=== PATIENT | female | born 1960 | race Caucasian/White ===

== ENCOUNTER 2017-06-23 13:04 | Emergency (ER) | payer OTHER ==
[2017-06-23 13:10] VITALS: BP 127/70; PULSE 72; TEMP 98; BMI 26.5
--- NOTE | 2017-06-23 14:03 | PDOC ---
History of Present Illness - General Chief Complaint: Cold Symptoms Stated Complaint: COUGH Time Seen by Provider: 06/23/17 13:40 History Source: Patient Exam Limitations: No Limitations - History of Present Illness Initial Comments: 06/23/17 15:42 Chief complaint: Cough Patient is a 57-year-old healthy female with a few days of cough, runny nose. Patient has not been taking any medication. No shortness of breath. GENERAL/CONSTITUTIONAL: No fever, weakness. dizziness HEAD, EYES, EARS, NOSE AND THROAT: No change in vision. No ear pain or discharge. No sore throat. CARDIOVASCULAR: No chest pain RESPIRATORY: No shortness of breath +cough GASTROINTESTINAL: No pain, nausea, vomiting, diarrhea or constipation GENITOURINARY: No dysuria MUSCULOSKELETAL: No neck or back pain SKIN: No rash NEUROLOGIC: No headache, vertigo, loss of consciousness, or loss of sensation. GENERAL: The patient is awake, alert, and fully oriented, in no acute distress. HEAD: Normal with no signs of trauma. EYES: Pupils equal, round and reactive to light, sclera anicteric, conjunctiva clear. ENT: pharynx: no erythema, no exudate, uvula midline NECK: supple CHEST: Scant expiratory wheeze that cleared up after a few breaths with coughing , nontender, rr ABD: soft, nontender EXTREMITIES: Normal range of motion, no edema. NEUROLOGICAL: Normal speech, normal gait. SKIN: Warm, Dry Past History - Past Medical History Allergies/Adverse Reactions: Allergies Allergy/AdvReac Type Severity Reaction Status Date / Time clindamycin Allergy Unknown Verified 06/23/17 13:09 erythromycin base Allergy Unknown Swelling Verified 06/23/17 13:09 [Erythromycin Base] Penicillins Allergy Unknown Swelling Verified 06/23/17 13:09 Home Medications: Ambulatory Orders Albuterol Sulfate Inhaler - [Ventolin HFA Inhaler -] 2 inh PO Q6H PRN #1 inh 09/08 Prednisone [Deltasone] 40 mg PO DAILY #8 tablet 06/23/17 COPD: No Other medical history: NONE - Immunization History Immunization Up to Date: No - Suicide/Smoking/Psychosocial Hx Smoking Status: No Smoking History: Former smoker Have you smoked in the past 12 months: No Number of Cigarettes Smoked Daily: 2 If you are a former smoker, when did you quit?: 2013 Information on smoking cessation initiated: No Hx Alcohol Use: No Drug/Substance Use Hx: No Substance Use Type: None *Physical Exam - Vital Signs Last Vital Signs Temp Pulse Resp BP Pulse Ox 98.0 F 72 20 127/70 99 06/23/17 13:06 06/23/17 13:06 06/23/17 13:06 06/23/17 13:06 06/23/17 13:06 Medical Decision Making - Medical Decision Making 06/23/17 15:44 Patient with upper respiratory infection, viral, with scant intermittent wheeze. Will prescribe inhaler and prednisone, patient given suggestions to take Sudafed or an [id number] decongestant, cough medicine along with these medications and follow-up with her doctor this week. *DC/Admit/Observation/Transfer Diagnosis at time of Disposition: Upper respiratory infection Qualifiers: URI type: unspecified URI Qualified Code(s): J06.9 - Acute upper respiratory infection, unspecified - Discharge Dispostion Disposition: HOME Condition at time of disposition: Stable Admit: No - Prescriptions Prescriptions: Albuterol Sulfate Inhaler - [Ventolin HFA Inhaler -] 2 inh PO Q6H PRN #1 inh PRN Reason: Wheezing Prednisone [Deltasone] 40 mg PO DAILY #8 tablet - Referrals - Patient Instructions Printed Discharge Instructions: DI for Viral Upper Respiratory Infection -- Adult Additional Instructions: Drink 2-3 L of water daily Take Tylenol 650 mg every 4 hours or Motrin 600 mg every 6 hours for fever and pain use albuterol inhaler 2 puffs every 6 hours for any wheezing or consistent coughing. if you find you are wheezing over the weekend, start the prednisone 40 mg once daily you can take pseudophed or any other decongestant you like for runny nose and congestion Return to the nearest ER if short of breath, unable to swallow or feeling sicker Followup with your doctor in one to 2 days - Post Discharge Activity
== END 2017-06-23 14:05 | disposition home or self-care (01) ==
LOC: JERFT 13:04
DX: J06.9 Acute upper respiratory infection, unspecified (principal); Z87.891 Personal history of nicotine dependence
CPT/HCPCS: 99281-25

== ENCOUNTER 2018-12-02 13:59 | Emergency (ER) | payer OTHER ==
[2018-12-02 14:13] VITALS: BP 102/56; PULSE 63; TEMP 98; BMI 30.2
--- NOTE | 2018-12-02 14:28 | PDOC ---
History of Present Illness - General Chief Complaint: Cold Symptoms Stated Complaint: COUGH Time Seen by Provider: 12/02/18 14:20 - History of Present Illness Initial Comments: 12/02/18 14:25 58-year-old female with no comorbidities presents for evaluation of cough 2 month no systemic symptoms. Past History - Past Medical History Allergies/Adverse Reactions: Allergies Allergy/AdvReac Type Severity Reaction Status Date / Time clindamycin Allergy Unknown Verified 12/02/18 14:03 erythromycin base Allergy Unknown Swelling Verified 12/02/18 14:03 [Erythromycin Base] Penicillins Allergy Unknown Swelling Verified 12/02/18 14:03 Home Medications: Ambulatory Orders Budesonide [Rhinocort Allergy] 1 spray NS ONCE #1 spray.pump 12/02/18 Cetirizine HCl [Zyrtec Rapidly Dissolving Tab -] 10 mg PO DAILY #30 tab COPD: No - Immunization History Immunization Up to Date: No - Suicide/Smoking/Psychosocial Hx Smoking Status: No Smoking History: Never smoked Have you smoked in the past 12 months: No Number of Cigarettes Smoked Daily: 2 If you are a former smoker, when did you quit?: 2013 Information on smoking cessation initiated: No Hx Alcohol Use: No Drug/Substance Use Hx: No Substance Use Type: None Review of Systems - Review of Systems Constitutional: No: Fever Respiratory: Yes: Cough *Physical Exam - Vital Signs Last Vital Signs Temp Pulse Resp BP Pulse Ox 98.0 F 63 16 102/56 L 97 12/02/18 14:00 12/02/18 14:00 12/02/18 14:00 12/02/18 14:00 12/02/18 14:00 - Physical Exam Comments: 12/02/18 14:25 HEAD: NC/AT EYES: Conjuntiva clear Ears: Canals and TM's normal NOSE: No d/c THROAT: Moist mucous membrances, oral pharanx clear, uvula midline NECK: Supple without adenopathy CARDIAC: S1 S2 LUNGS: CTA Full and Equal breath sounds ABDOMEN: Soft NT ND MS: Full ROM in all joints without edema NEUROLOGIC: No gross sensory or motor deficits, NVID SKIN: Normal color and temperature no lesions or rashes Medical Decision Making - Medical Decision Making 12/02/18 14:25 Benign examination we'll start patient on a hand antihistamine and nasal spray and have her follow-up with her primary care physician. *DC/Admit/Observation/Transfer Diagnosis at time of Disposition: Seasonal allergic reaction - Discharge Dispostion Disposition: HOME Condition at time of disposition: Stable Decision to Admit order: No - Prescriptions Prescriptions: Budesonide [Rhinocort Allergy] 1 spray NS ONCE #1 spray.pump Cetirizine HCl [Zyrtec Rapidly Dissolving Tab -] 10 mg PO DAILY #30 tab - Referrals Referrals: Andre Henderson MD [Staff Physician] - - Patient Instructions Printed Discharge Instructions: Allergic Rhinitis Additional Instructions: Please take the antihistamine nasal spray as directed return to the emergency room for worsening symptoms and follow-up with your primary care physician in one to 2 days for further evaluation and treatment options. - Post Discharge Activity - Transfer to Acute Care Facility Transfer comment: 12/02/18 14:26 12/02/18 14:28
== END 2018-12-02 14:39 | disposition home or self-care (01) ==
LOC: JERFT 13:59
DX: J30.2 Other seasonal allergic rhinitis (principal); Z87.891 Personal history of nicotine dependence
CPT/HCPCS: 99281-25

== ENCOUNTER 2019-08-15 16:47 | Emergency (ER) | payer OTHER ==
--- NOTE | 2019-08-15 16:59 | PDOC ---
Rapid Medical Evaluation Time Seen by Provider: 08/15/19 16:57 Medical Evaluation: Allergies Allergy/AdvReac Type Severity Reaction Status Date / Time clindamycin Allergy Unknown Verified 12/02/18 14:03 erythromycin base Allergy Unknown Swelling Verified 12/02/18 14:03 [Erythromycin Base] Penicillins Allergy Unknown Swelling Verified 12/02/18 14:03 08/15/19 16:57 Pt c/o: swelling to gum x 2 days, subjective fever, mult caries Pt on brief exam: noted gingivitis, + excessive plaque, recessed gums, poor dental hygiene, mild erythema to llq Pt ordered for: none pt to proceed to the ED Discharge Disposition - Diagnosis Gingivitis, Pain, dental - Discharge Dispostion Disposition: HOME Condition at time of disposition: Stable - Prescriptions Prescriptions: Doxycycline Hyclate 100 mg PO BID #14 tablet - Referrals - Patient Instructions Printed Discharge Instructions: DI for Dental Pain Additional Instructions: You were evaluated for your dental pain today. You most likely have an infection in the gum. I did not feel any abscesses. Please take the doxycycline as directed for the infection. Please take this medication with food, activita a yogurt is recommended. Please follow-up with your dentist as soon as possible. You were also given the information for the urgent care in [place]. If you cannot find a dentist within the next week please follow-up with them. Return to the ER for difficulty breathing, difficulty swallowing, increased pain despite treatment, or if you have any changes in your symptoms. [facility] Address: [address] [place] [address] - Post Discharge Activity
[2019-08-15 17:03] VITALS: BP 127/80; PULSE 65; TEMP 97.9; BMI 29.4
--- NOTE | 2019-08-15 18:56 | PDOC ---
History of Present Illness - General Chief Complaint: Cold Symptoms Stated Complaint: FEVER Time Seen by Provider: 08/15/19 16:57 History Source: Patient Exam Limitations: No Limitations Past History - Travel Traveled outside of the country in the last 30 days: No Close contact w/someone who was outside of country & ill: No - Past Medical History Allergies/Adverse Reactions: Allergies Allergy/AdvReac Type Severity Reaction Status Date / Time clindamycin Allergy Unknown Verified 08/15/19 16:58 erythromycin base Allergy Unknown Swelling Verified 08/15/19 16:58 [Erythromycin Base] Penicillins Allergy Unknown Swelling Verified 08/15/19 16:58 Home Medications: Ambulatory Orders Budesonide [Rhinocort Allergy] 1 spray NS ONCE #1 spray.pump 12/02/18 Cetirizine HCl [Zyrtec Rapidly Dissolving Tab -] 10 mg PO DAILY #30 tab Doxycycline Hyclate 100 mg PO BID #14 tablet 08/15/19 COPD: No - Immunization History Immunization Up to Date: No - Psycho Social/Smoking Cessation Hx Smoking Status: No Smoking History: Former smoker Have you smoked in the past 12 months: No Number of Cigarettes Smoked Daily: 2 If you are a former smoker, when did you quit?: 2013 Information on smoking cessation initiated: Yes Hx Alcohol Use: No Drug/Substance Use Hx: No Substance Use Type: None Review of Systems - Review of Systems Able to Perform ROS?: Yes Comments:: 08/15/19 19:00 CONSTITUTIONAL: Absent: fever, chills, diaphoresis, generalized weakness, malaise, loss of appetite HEENT: Present: dental pain Absent: rhinorrhea, nasal congestion, throat pain, throat swelling, difficulty swallowing, mouth swelling, ear pain, eye pain, visual changes SKIN: Absent: rash, itching, pallor NEUROLOGIC: Absent: headache, focal weakness or paresthesias, dizziness, unsteady gait, seizure, mental status changes, bladder or bowel incontinence PSYCHIATRIC: Absent: anxiety, depression, suicidal or homicidal ideation, hallucinations. Is the patient limited Trinidadian proficient: No *Physical Exam - Vital Signs Last Vital Signs Temp Pulse Resp BP Pulse Ox 97.9 F 65 12 127/80 99 08/15/19 16:58 08/15/19 16:58 08/15/19 16:58 08/15/19 16:58 08/15/19 16:58 - Physical Exam 08/17/19 19:54 GENERAL: The patient is awake, alert, and fully oriented, in no acute distress. HEAD: Normal with no signs of trauma. EYES: Pupils equal, round and reactive to light, extraocular movements intact, sclera anicteric, conjunctiva clear. HEENT: Swelling and gingivitis present to the left lower gum near teeth 24 through 22. No obvious abscess or drainage. No nasal congestion or rhinorrhea. No sinus Tenderness. Mucous membranes are moist. No tonsillar erythema, exudate or edema. Uvula is midline. No TM bulging, dullness or erythema. NECK: Neck is supple. No adenopathy. No meningismus. No stridor. EXTREMITIES: Normal range of motion, no edema. NEUROLOGICAL: Normal speech, normal gait. PSYCH: Normal mood, normal affect. SKIN: Warm, Dry, normal turgor, no rashes or lesions noted. Medical Decision Making - Medical Decision Making 08/17/19 19:55 The patient is a 59-year-old female who presents to the ER today with left lower gum pain. She states that her breath has been starting to smell and her lower teeth hurt. She knows she needs a root canal but she has not been able to see her dentist. She states that she is starting to feel intermittently febrile and is concerned it could be from her tooth. She states that it hurts to chew. Denies difficulty swallowing, sore throat, vomiting. A/P: Dental pain On exam teeth 24 through 22 with gingivitis and swollen gums. No obvious abscess or fluctuance near those teeth. Overall poor dentition. We will treat patient with doxycycline for her dental infection. Referred patient to another dentist so she could have a further more thorough evaluation. Discharge home I discussed the physical exam findings, ancillary test results and final diagnoses with the patient. I answered all of the patient's questions. The patient was satisfied with the care received and felt comfortable with the discharge plan and treatment plan. The Patient agrees to follow up with the primary care physician/specialist within 24-72 hours. Return precautions were given. Discharge - Discharge Information Problems reviewed: Yes Clinical Impression/Diagnosis: Gingivitis, Pain, dental Condition: Stable Disposition: HOME - Admission No - Additional Discharge Information Prescriptions: Doxycycline Hyclate 100 mg PO BID #14 tablet - Follow up/Referral - Patient Discharge Instructions Patient Printed Discharge Instructions: DI for Dental Pain Additional Instructions: You were evaluated for your dental pain today. You most likely have an infection in the gum. I did not feel any abscesses. Please take the doxycycline as directed for the infection. Please take this medication with food, activita a yogurt is recommended. Please follow-up with your dentist as soon as possible. You were also given the information for the urgent care in [place]. If you cannot find a dentist within the next week please follow-up with them. Return to the ER for difficulty breathing, difficulty swallowing, increased pain despite treatment, or if you have any changes in your symptoms. [facility] Address: [address] [place] [id number] - Post Discharge Activity
== END 2019-08-15 19:28 | disposition home or self-care (01) ==
LOC: JERFT 16:47
DX: K02.9 Dental caries, unspecified (principal); K05.10 Chronic gingivitis, plaque induced; Z88.1 Allergy status to other antibiotic agents
CPT/HCPCS: 99281-25

== ENCOUNTER 2019-09-19 14:47 | Emergency (ER) | payer OTHER ==
[2019-09-19 14:53] VITALS: BP 138/73; PULSE 67; TEMP 98; BMI 29.2
--- NOTE | 2019-09-19 15:12 | PDOC ---
History of Present Illness - General Chief Complaint: Toothache Stated Complaint: SICK Time Seen by Provider: 09/19/19 14:54 History Source: Patient Exam Limitations: No Limitations - History of Present Illness Initial Comments: 09/19/19 15:13 HISTORY OF PRESENT ILLNESS: 59-year-old woman who denies medical history presents emergency department for evaluation of right-sided dental pain for the past 3 days. Patient reports she was seen and treated here approximately 1 month ago for which she never followed up with a dentist as she had multiple social issues to handle prior to dentist. Patient is requesting an additional course of doxycycline at this time to treat her pain. No recent travel or sick contacts. PAST MEDICAL HISTORY: Denies past medical history SURGICAL HISTORY: Denies ALLERGIES: No known drug allergies REVIEW OF SYSTEMS General/Constitutional: Denies fever or chills. Denies weakness, weight change. HEENT: See HPI Cardiovascular: Denies chest pain or shortness of breath. Respiratory: Denies cough, wheezing, or hemoptysis. Gastrointestinal: Denies nausea, vomiting, diarrhea or constipation. Denies rectal bleeding. Genitourinary: Denies dysuria, frequency, or change in urination. Musculoskeletal: Denies joint or muscle swelling or pain. Denies neck or back pain. Skin and breasts: Denies rash or easy bruising. Neurologic: Denies headache, vertigo, loss of consciousness, or loss of sensation. Psychiatric: Denies depression or anxiety. Endocrine: Denies increased thirst. Denies abnormal weight change. Hematologic/Lymphatic: Denies anemia, easy bleeding, or history of blood clots. Allergic/Immunologic: Denies hives or skin allergy. Denies latex allergy. PHYSICAL EXAM General Appearance: Well-appearing, appropriately dressed. No apparent distress , no intoxication. HEENT: EOMI, PERRLA, normal ENT inspection, normal voice, TMs normal, pharynx normal. No conjunctival pallor. No photophobia, scleral icterus. Poor dentition present. Multiple dental caries to all remaining teeth. Gingivitis presents to the right upper and lower gingiva. No palpable abscess or drainage noted. Integumentary: Appropriate color, dry, warm. No cyanosis, erythema, jaundice or rash Neurologic: project administrator II-XII intact. Fully oriented, alert. Appropriate mood/affect. Motor strength 5/5. No appreciable EOM palsy, facial droop or sensory deficit. Past History - Past Medical History Allergies/Adverse Reactions: Allergies Allergy/AdvReac Type Severity Reaction Status Date / Time clindamycin Allergy Unknown Verified 09/19/19 14:54 erythromycin base Allergy Unknown Swelling Verified 09/19/19 14:54 [Erythromycin Base] Penicillins Allergy Unknown Swelling Verified 09/19/19 14:54 Home Medications: Ambulatory Orders Doxycycline Hyclate [Vibramycin -] 100 mg PO BID #14 cap 09/19/19 COPD: No - Immunization History Immunization Up to Date: No - Psycho Social/Smoking Cessation Hx Smoking Status: No Smoking History: Unknown if ever smoked Have you smoked in the past 12 months: No Number of Cigarettes Smoked Daily: 2 If you are a former smoker, when did you quit?: 2013 Hx Alcohol Use: No Drug/Substance Use Hx: No Substance Use Type: None *Physical Exam - Vital Signs Last Vital Signs Temp Pulse Resp BP Pulse Ox 98 F 67 16 138/73 99 09/19/19 14:50 09/19/19 14:50 09/19/19 14:50 09/19/19 14:50 09/19/19 14:50 Medical Decision Making - Medical Decision Making 09/19/19 15:11 A/P: 59-year-old woman with toothache to the right upper and lower molars Poor dentition Multiple dental caries present Gingivitis noted to gums along the right upper and lower gingival surfaces As patient has allergies to clindamycin, erythromycin and penicillin I will discharge on doxycycline 100 mg twice daily for the next 7 days. Patient has been instructed to follow-up with a dentist as she was during her previous visit. It was explained to the patient that repeat evaluation and antibiotics are not 80 appropriate treatment modality and a dentist as needed for definitive care. I discussed the physical exam findings, ancillary test results and final diagnoses with the patient. I answered all of the patient's questions. The patient was satisfied with the care received and felt comfortable with the discharge plan and treatment plan. The patient will call their primary care physician within 24 hours to arrange follow-up and will return to the Emergency Department with any new, persistent or worsening symptoms. Portions of this note have been documented using voice recognition software. As a result, errors may occur in the tomographic tech process. Effort has been made to correct all grammatical and tomographic tech error, but some may have been missed which may produce sporadic inaccurate tomographic tech or nonsensical phrases. Discharge - Discharge Information Problems reviewed: Yes Clinical Impression/Diagnosis: Dental caries Condition: Stable Disposition: HOME - Admission No - Additional Discharge Information Prescriptions: Doxycycline Hyclate [Vibramycin -] 100 mg PO BID #14 cap - Follow up/Referral - Patient Discharge Instructions Additional Instructions: Rest, drink lots of fluids: Teas, water, soups Saltwater gargles/ keep mouth clean and rinse after each meal May use wet teabag for pain relief to area Avoid hard chewing foods, stick to ice cream, Jell-O, yogurt etc. Tylenol or Motrin for fever and pain Complete all medication as prescribed Call [facility] at [phone] Followup with private physician in one to 2 days as needed Return to emergency department for worsened symptoms, fevers, swelling to face or worsened pain - Post Discharge Activity
== END 2019-09-19 15:36 | disposition home or self-care (01) ==
LOC: JERFT 14:47
DX: K02.9 Dental caries, unspecified (principal); Z88.8 Allergy status to other drugs, medicaments and biological substances; Z88.0 Allergy status to penicillin
CPT/HCPCS: 99283-25